=== PATIENT | male | born 1980 | race African-American/Black ===

== ENCOUNTER 2016-08-31 16:27 | Emergency (ER) | payer OTHER, MEDICAID ==
[~2016-08-31] VITALS: Ht 185.4 cm; Wt 113.6 kg
[~2016-08-31 16:27] MED LIST: COLACE 100100 MG/CAP PO; NO HOME MEDICATIONS; PERCOCET 325 MG1 TA2 PO; PYRIDIUM200 M1 PO
[2016-08-31 16:37] VITALS: BP 139/85; TEMP 98.2
[2016-08-31] MEDS ORDERED: FLEXERIL 1010 MG/TAB PO (18:30)
[2016-08-31 18:50] VITALS: PULSE 70
== END 2016-08-31 18:53 | disposition home or self-care (01) ==
LOC: COL.ER 16:27
DX: S29.012A Strain of muscle and tendon of back wall of thorax, initial encounter (principal); V49.50XA Passenger injured in collision with unspecified motor vehicles in traffic accident, initial encounter; Y92.410 Unspecified street and highway as the place of occurrence of the external cause

== ENCOUNTER → 2017-12-09 | Outpatient (CLI) | payer MEDICAID ==
[~2017-12-09] MED LIST changes: +FLEXERIL 1010 MG/TAB PO
== END ==
LOC: COL.RAD 07:41
DX: N28.89 Other specified disorders of kidney and ureter (principal); N18.9 Chronic kidney disease, unspecified; N13.30 Unspecified hydronephrosis; Z96.0 Presence of urogenital implants

== ENCOUNTER 2019-03-07 08:23 | Emergency (ER) | payer SELFPAY ==
[~2019-03-07] VITALS: Ht 185.4 cm; Wt 127.3 kg
[2019-03-07 08:32] VITALS: TEMP 97.8
[2019-03-07 09:03] LABS: BASO # 0.1 (0.0-0.2); BASO % 1.2 % (0.0-2.0); EOS # 0.1 (0.0-0.7); EOS % 2.2 % (0-4.0); GRAN # 1.4 (1.4-6.5); GRAN % 28.1 % (42.2-75.2); HEMATOCRIT 43.3 % (42.0-52.0); HEMOGLOBIN 14.2 g/dl (13.5-18.0); LYMPH # 2.9 (1.2-3.4); LYMPH % 58.5 % (20.0-51.0); MEAN CELL VOLUME 91 fl (80.0-100.0); MEAN CORPUSCULAR HEMOGLOBIN 30 pg (27.0-31.0); MEAN CORPUSCULAR HGB CONC 33 g/dl (33.0-37.0); MEAN PLATELET VOLUME 9.9 fl (7.4-10.4); MONO # 0.5 (0.1-0.6); MONO % 9.8 % (1.7-9.3); PLATELET COUNT 215 K/mm3 (130-400); RED BLOOD COUNT 4.74 M/mm3 (4.20-5.60)
[2019-03-07 09:17] LABS: ALANINE AMINOTRANSFERASE 35 U/L (21-72); ALBUMIN 3.9 gm/dL (3.5-5.0); ALKALINE PHOSPHATASE 53 U/L (50-136); ANION GAP 11 mmol/L (7-16); AST,SGOT 41 U/L (15-37); BILIRUBIN,TOTAL 0.2 mg/dL (0.0-1.0); BLOOD UREA NITROGEN 7 mg/dL (9-20); CALCIUM 9.2 mg/dL (8.4-10.2); CARBON DIOXIDE 24 mmol/L (22-30); CHLORIDE 109 mmol/L (98-107); CREATININE, serum 1.03 (0.66-1.25); GLUCOSE 85 mg/dL (74-106); POTASSIUM 4.3 mmol/L (3.4-5.0); SODIUM 144 mmol/L (137-145); TOTAL PROTEIN 7.2 gm/dL (6.4-8.2)
[2019-03-07 09:23] LABS: C-REACTIVE PROTEIN < 0.5 mg/dL (0.0-0.9)
[2019-03-07 09:26] LABS: COLLECTION METHOD CLEAN CATCH
[2019-03-07 09:27] LABS: TROPONIN-I < 0.012 ng/mL (0.000-0.035)
[2019-03-07] MEDS ORDERED: HYDRODIURIL50 MG PO (09:27)
[2019-03-07] MEDS ORDERED: SYNTHROID0.05 MG/TA (09:29)
[2019-03-07 09:32] LABS: MUCOUS Present /lpf; PH 5 (5-8); SQUAMOUS EPITHELIAL None Seen /hpf; URINE APPEARANCE Clear; URINE BACTERIA None Seen /hpf; URINE BILIRUBIN Negative (NEGATIVE); URINE BLOOD Negative (NEGATIVE); URINE COLOR Yellow; URINE GLUCOSE Negative (NEGATIVE); URINE KETONE Negative (NEGATIVE); URINE LEUKOCYTE ESTERASE Negative (NEGATIVE); URINE NITRATE Negative (NEGATIVE); URINE PROTEIN(semi-quant) Negative (NEGATIVE); URINE RBC 0-2 /hpf; URINE UROBILINOGEN Negative (NEGATIVE)
[2019-03-07] MEDS ORDERED: NORVASC 5MG5 MG/TAB PO (10:00)
[2019-03-07 11:24] VITALS: BP 155/100; PULSE 73
== END 2019-03-07 11:26 | disposition home or self-care (01) ==
LOC: COL.ER 08:23
PROVIDERS: Physician Assistant
DX: E03.9 Hypothyroidism, unspecified (principal); R42 Dizziness and giddiness; I10 Essential (primary) hypertension; F17.210 Nicotine dependence, cigarettes, uncomplicated; Z87.19 Personal history of other diseases of the digestive system
CPT/HCPCS: J7030

== ENCOUNTER 2021-11-23 11:55 | Emergency (ER) | payer SELFPAY ==
[~2021-11-23] VITALS: Ht 185.4 cm; Wt 107.7 kg
[~2021-11-23 11:55] MED LIST changes: +HYDRODIURIL50 MG PO; +NORVASC 5MG5 MG/TAB PO; +SYNTHROID0.05 MG/TA
[2021-11-23 12:53] LABS: BASO # 0.1 K/mm3 (0.0-0.2); BASO % 1.9 % (0.0-2.0); EOS # 0.1 K/mm3 (0.0-0.7); EOS % 1.9 % (0.0-4.0); GRAN # 2.4 K/mm3 (1.4-6.5); GRAN % 45.3 % (42.2-75.2); HEMATOCRIT 40.5 % (42.0-52.0); HEMOGLOBIN 13.5 g/dl (13.5-18.0); LYMPH # 2.2 K/mm3 (1.2-3.4); LYMPH % 41.6 % (20.0-51.0); MEAN CELL VOLUME 87 fl (80.0-100.0); MEAN CORPUSCULAR HEMOGLOBIN 29 pg (27-31); MEAN CORPUSCULAR HGB CONC 33 g/dl (33.0-37.0); MONO # 0.5 K/mm3 (0.1-0.6); MONO % 9.1 % (1.7-9.3); PLATELET COUNT 251 K/mm3 (130-400); RED BLOOD COUNT 4.66 M/mm3 (4.20-5.60); REDCELL DISTRIBUTION WIDTH-CV 17.1 % (11.5-14.5)
[2021-11-23 13:16] LABS: ALANINE AMINOTRANSFERASE 124 U/L (0-55); ALBUMIN 3.7 gm/dL (3.5-5.0); ALCOHOL(ethanol),MEDICAL 87 mg/dL (0-10); ALKALINE PHOSPHATASE 54 U/L (40-150); ANION GAP 11 mmol/L (7-16); AST,SGOT 109 U/L (5-34); BILIRUBIN,TOTAL 0.2 mg/dL (0.2-1.2); BLOOD UREA NITROGEN 7 mg/dL (9-21); CALCIUM 8.9 mg/dL (8.4-10.2); CARBON DIOXIDE 22 mmol/L (22-29); CHLORIDE 104 mmol/L (98-107); CREATININE, serum 0.98 mg/dL (0.72-1.25); GLUCOSE 118 mg/dL (70-99); MAGNESIUM 1.8 mg/dL (1.6-2.6); SODIUM 137 mmol/L (136-145); TOTAL PROTEIN 7.4 gm/dL (6.2-8.1)
[2021-11-23 13:17] LABS: LIPASE < 4 U/L (8-78)
[2021-11-23 13:27] LABS: TRICYCLIC ANTIDEPRESS URINE NEGATIVE
[2021-11-23 13:39] LABS: TSH w REFLEX 1.467 uIU/mL (0.350-4.940)
[2021-11-23 13:50] LABS: TROPONIN-I < 0.010 ng/mL (0.00-0.033)
[2021-11-23 14:29] VITALS: BP 158/99; PULSE 79; TEMP 97.7
== END 2021-11-23 14:29 | disposition home or self-care (01) ==
LOC: COL.ER 11:55
PROVIDERS: Physician Assistant
DX: F10.129 Alcohol abuse with intoxication, unspecified (principal); R42 Dizziness and giddiness; F17.210 Nicotine dependence, cigarettes, uncomplicated; Z28.310 Unvaccinated for COVID-19; Y90.4 Blood alcohol level of 80-99 mg/100 ml
CPT/HCPCS: J7030